=== PATIENT | male | born 1970 | race Two or more races ===

== ENCOUNTER 2025-07-23 20:52 | Emergency (ER) | payer MEDICARE, OTHER ==
[~2025-07-23] VITALS: Ht 167.6 cm; Wt 95.3 kg
[2025-07-23] MEDS: IV NS 0.9% 1,000 ML BAG IV ONE (21:14)
[2025-07-23 21:23] LABS: PLATELET COUNT (AUTO) 260 K/uL (150-450); RED BLOOD CELL COUNT(AUTO) 4.52 MIL/uL (4.5-6.0); RED CELL DISTRIBUTION WIDTH 13.1 % (11.5-15.0); WHITE BLOOD COUNT (AUTO) 7.4 K/uL (4.3-11.0)
[2025-07-23 21:31] LABS: APPEARANCE,URINE CLEAR (CLEAR); BLOOD, URINE NEGATIVE Ery/uL (NEGATIVE); LEUKOCYTE ESTERASE ,URINE NEGATIVE (NEGATIVE); NITRITE, URINE NEGATIVE (NEGATIVE); UGLUCOSE 3+ mg/dL (NEGATIVE)
[2025-07-23 21:32] LABS: CALCIUM, SERUM 9.0 mg/dL (8.5-10.1); CREATININE 1.0 mg/dL (0.6-1.3); SODIUM SERUM 130.0 mmol/L (136-145); UREA NITROGEN, BLOOD 11.0 mg/dL (7-18)
[2025-07-23 21:35] LABS: ASPARTATE AMINOTRANSFERASE 14.0 U/L (15-37); TOTAL PROTEIN, SERUM 8.1 g/dL (6.4-8.2)
[2025-07-23 21:44] LABS: ADD URINE CULTURE NO; SQUAMOUS EPITHELIAL CELL,UR Few /HPF (None Seen)
[2025-07-23] MEDS: IV LR 1000 ML 1,000 ML IV ONE (23:03)
[2025-07-23] MEDS: INSULIN REGULAR, HUMAN 100 UNIT/ML 10 ML VIAL IV ONE (23:04)
[2025-07-24] MEDS ORDERED: METFORMIN 500 MG TABLET ONE (02:27)
[2025-07-24] MEDS: METFORMIN 500 MG TABLET PO ONE (02:29)
[2025-07-24 02:41] LABS: FRACTIONATED INSPIRED OXYGEN-V 21.0 %; VBG BASE EXCESS 0.9 mmol/L (-2.0-3.0); VBG HCO3 26.6 mmol/L (22.0-29.0); VBG MetHb 0.4 % (0.5-1.5); VBG OXYGEN SATURATION 68.4 % (60.0-85.0); VBG PCO2 47.0 mmHg (38.0-54.0); VBG PH 7.371 (7.320-7.430); VBG PO2 35.7 mmHg (23.0-48.0); VBG TOTAL HEMOGLOBIN 13.0 G/dL (13.5-17.5)
[2025-07-24] MEDS ORDERED: DEXTROSE 50%-WATER 50 ML DISP.SYRIN IV PRN (03:30)
[2025-07-24] MEDS: IV LR 1000 ML 1,000 ML IV ONE (03:45)
[2025-07-24] MEDS: BLOOD SUGAR DIAGNOSTIC 1 EACH STRIP IN SCH (05:24)
[2025-07-24] MEDS ORDERED: INSULIN REGULAR, HUMAN 100 UNIT/ML 10 ML VIAL ONE (07:27)
[2025-07-24] MEDS: INSULIN REGULAR, HUMAN 100 UNIT/ML 3 ML VIAL SQ PRN (07:28)
[2025-07-24] MEDS ORDERED: ATOR10TA PO (07:41)
[2025-07-24] MEDS ORDERED: FAMO20TA8 PO (07:41)
[2025-07-24] MEDS ORDERED: SERT50TA PO (07:41)
[2025-07-24] MEDS ORDERED: AMLO-213 PO (07:41)
[2025-07-24] MEDS ORDERED: OLAN10TA3 PO (07:41)
[2025-07-24] MEDS ORDERED: METF500T PO (07:41)
[2025-07-24] MEDS ORDERED: TEMA15CA PO (07:41)
[2025-07-24] MEDS ORDERED: CARV12.52 PO (07:41)
[2025-07-24] MEDS ORDERED: CLON0.1T PO (07:41)
[2025-07-24] MEDS ORDERED: INSU100I30 SQ (07:41)
[2025-07-24] MEDS ORDERED: INSU100V9 SQ (07:41)
[2025-07-24] MEDS ORDERED: PIOG45TA5 PO (07:41)
[2025-07-24] MEDS ORDERED: LISI10TA29 PO (07:41)
[2025-07-24 09:00] VITALS: BP 145/92; TEMP 98.6; O2SAT 98
== END 2025-07-24 09:25 ==
LOC: ER 20:54
DX: E11.65 Type 2 diabetes mellitus with hyperglycemia (principal); E78.5 Hyperlipidemia, unspecified; F22 Delusional disorders; F31.9 Bipolar disorder, unspecified; I10 Essential (primary) hypertension; Z79.84 Long term (current) use of oral hypoglycemic drugs
CPT/HCPCS: 99285; 96374; 96361 ×2; 82803 ×2; 85025; 81001; 36415; 80053; 82962 ×7; J1815 ×2; J7120 ×2; J7030; A4223